=== PATIENT | female | born 1995 | race Caucasian/White ===

== ENCOUNTER → 2018-09-30 15:00 | Outpatient (CLI) | payer SELFPAY | DX: Z23 Encounter for immunization (principal) | CPT/HCPCS: 90471; 90686 ==

== ENCOUNTER → 2019-07-28 08:47 | Outpatient (CLI) | payer OTHER, SELFPAY ==
[2019-07-29 08:36] LABS: Strep Grp B PCR NEG for Grp B Strep
== END ==
DX: Z34.03 Encounter for supervision of normal first pregnancy, third trimester (principal)
CPT/HCPCS: 87653

== ENCOUNTER 2019-09-03 17:49 | Observation (INO) | payer OTHER, SELFPAY | END 2019-09-03 19:20 | disposition home or self-care (01) | LOC: LABOR 17:51 | CPT/HCPCS: 59025; G0378; G0379 ==

== ENCOUNTER 2019-09-04 06:46 | Inpatient (IN) | payer OTHER, SELFPAY ==
[2019-09-04] VITALS (7 sets, daily range): BP systolic 89–125; BP diastolic 47–87; PULSE 75–77; RESP 12–16; TEMP 37.2–38.2; O2SAT 99
--- NOTE | 2019-09-04 08:11 | P.HPOB_ITS ---
OB HPI Date/Time Date of admission: 09/04/19 Date Patient Seen: 09/04/19 Time Patient Seen: 08:11 History of Present Condition Chief complaint: : 1 Para: 0 Estimated Date of Delivery: 08/30/19 Estimated Gestational Age (weeks): 41 Narrative: Yvette Pollard is a 24 year old female one para 0 who presents for induction of labor at 41 weeks of . The patient was to have misoprostol cervical ripening but all beds were full. The patient returns this morning for evaluation of induction. The patient's antepartum course was unremarkable. She had a normal 20 week ultrasound. Her GBS is negative. Her glucose screen was normal. Indications Indication for induction OB: post dates History of Present care: good care, initiated at week # (6), number of visits (14) and pounds weight gain (19) Dating criteria: LMP confirmed by 1st trimester US Ultrasounds: normal 1st trimester US, normal mid trimester US and other (38 weeks estimated weight of seven 1-1/2 lb) Obstetrical complications: none and gestational diabetes Medical complications: none Preadmission Labs Blood type: A (+) positive -: Antibody screen: negative, Cystic fibrosis screen: unknown, GBS status: negative, HBsAG: negative, HIV: negative, HSV 1: negative, HSV 2: negative and RPR/VDLR: negative -: Chlamydia screen: detected (Negative) and Gonorrhea screen: detected (Negative) -: Rubella: immune and Varicella: immune HCT: 38 HCAB: negative PAP: Normal Sequential screen: Negative Quad screen: Normal 3 hr GTT: 1 hr (192), 2 hr (170) and 3 hr (66) Narrative: Blood sugars throughout lower normal Evaluation Evaluation Baseline heart rate: 140 Variability: Average (6-10) monitor accelerations: Present monitor decelerations: Absent Contraction Frequency (minutes): 0 Category of Tracing: I Cervical dilation (cm): 3 Cervical effacement (%): 80 station: -1 [facility] Family History (Updated 08/03/19 @ 21:13 by Loren Perez) Mother Hyperlipidemia Grandmother Thyroid cancer Grandfather Diabetes mellitus Mental health problem Grandmother Stroke Family History Mother Hyperlipidemia Grandmother Thyroid cancer Grandfather Diabetes mellitus Mental health problem Grandmother Stroke Review of Systems Review of Systems ROS Unobtainable: All systems reviewed & are unremarkable except as noted in HPI and below Exam Const General: cooperative and healthy appearing HENMT Head: normal to inspection Ears: hearing grossly normal bilaterally Nose: external nose normal Face and sinus: normal facial exam Mouth: oral mucosae normal, lip normal, tongue normal and moist mucous membranes Teeth and gingiva: dentition normal Throat: posterior oropharynx normal Eyes General: appearance normal, both eyes and all related structures Neck Neck: normal visual inspection and full ROM Chest Chest: normal inspection of the chest and normal palpation of entire chest wall Breast inspection: normal inspection of the breasts and normal inspection of the axillae Breast Palpation: normal palpation of the breasts and normal palpation of the axillae Resp Effort & Inspection: normal respiratory effort Auscultation: clear to auscultation bilaterally Cardio Palpation: normal PMI Rate: regular rate Rhythm: regular rhythm Heart Sounds: S1 normal and S2 normal GI Inspection: normal to inspection Palpation: soft and no hepatosplenomegaly Percussion: normal to percussion Auscultation: normal bowel sounds Manual OB Exam: dilated 3, effaced 75% and station -1 Uterus Location (Fundal Height): 38 Estimated Weight (lbs): 7 Back/Spine/Pelvis Thoracic/Lumbar Spine: thoracic and lumbar spine normal to inspection Skin General: no rashes or lesions noted Neuro General: alert, oriented x3, tone normal and moves all extremities Cognition: normal cognition Speech: speech normal Gait: normal gait Motor: muscle tone normal throughout Sensory Exam: no sensory deficits noted Extrem General: normal to inspection and normal exam except as noted Psych Appearance: grossly normal and well kempt Mental Status: mental status grossly normal Speech and Movement: speech and movement normal Assessment and Plan Assessment and Plan Assessment and Plan narrative: Post term intrauterine Plan is for induction of labor. Ca score is 10
[2019-09-04 08:50] LABS: Add Manual Diff / Slide Review NO; Basophils Absolute Auto 0 /uL (0-100); Basophils Percent Auto 0.1 % (0-2); Eosinophils Absolute Auto 100 /uL (0-450); Eosinophils Percent Auto 0.9 % (2-4); Hematocrit 41.6 % (36-46); Hemoglobin 13.9 g/dL (12.0-16.0); Lymphocytes Absolute Auto 2500 /uL (1100-4500); Lymphocytes Percent Auto 15.7 % (25-40); Mean Corpuscular HGB Conc 33.4 % (30-36); Mean Corpuscular Hemoglobin 25.4 PG (26-34); Mean Corpuscular Volume 76.1 fL (80-100); Monocytes Absolute Auto 1100 /uL (0-900); Monocytes Percent Auto 6.9 % (3-14); Neutrophils Absolute Auto 11900 /uL (1500-7000); Neutrophils Percent Auto 76.4 % (50-75); Platelet Count 263 X10^3/uL (150-400); Red Blood Cell Count 5.47 X10^6/uL (4.0-5.2); Red Cell Distribution Width 15.2 % (11.6-14.8); White Blood Cell Count 15.6 X10^3/uL (4.5-11.0)
[2019-09-04] MEDS: OXYTOCIN PREMIX 30 UNIT/500 ML PLAST..BAG IV (11:04)
[2019-09-04] MEDS: LACTATED RINGERS 1,000 ML 100 ML IV ×2 (11:10→21:04)
--- NOTE | 2019-09-04 17:25 | PM.OBPNLAB ---
Date/Time Date Patient Seen: 09/04/19 Time Patient Seen: 17:25 Pain Control Pain control: tolerating well Pelvic Exam Dilation (cm): 7 Effacement (%): 100 station: -1 Amniotic membrane status: Ruptured Contractions Contractions on admission: regular Monitor mode: Internal Pitocin rate (mU/min): 9 Contraction frequency (min): 2 Contraction duration (min): 60 Contraction pattern: Regular Contraction phase: Resting Contraction intensity: Strong/Firm Intrauterine tone measurement: 90 Status Heart Rate Baseline: 140 Monitor Accelerations: Present Monitor Decelerations: Variable Monitor Variability: Moderate Assessment and Plan Assessment: active labor and induction ongoing Plan: Comments: P t 7 cm at 1330 IUPC placed and pitocin increase regualr 90mm contractions. At 5 pm still 7 cm. More importantly no descent of head. Gopi presentation
[2019-09-04] MEDS: CEFOTETAN 2 GM/50 ML PIGGYBACK IV (17:53)
[2019-09-04] MEDS: ACETAMINOPHEN IV 1,000 MG/100 ML VIAL 400 MG IV (18:24)
--- NOTE | 2019-09-04 18:50 | P.OP_ITS ---
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 She was draped and prepared in the usual fashion. Transverse skin incision was made. Subcutaneous tissue was incised to the fascia.
--- NOTE | 2019-09-04 18:50 | SUR.OPER ---
Supine on Padded OR bed, head on pillow, safety belt at thigh, arms secured on padded arm boards at <90 degrees abduction. Bump under right buttock. Legs uncrossed with pillow under knees, gel pad to heels, tape over blanket to lower legs.
--- NOTE | 2019-09-04 18:53 | PM.GYNOP.1 ---
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 Transverse incision was made subcutaneous tissue was incised to the fascia. Fascia was incised with sharp knife transversely. The primary LS muscles were incised in the midline and this was white my blunt finger dissection. Perineum was picked up and incised. Shows white by blunt finger dissection. Bladder by facet in place. The perineum over the lower uterine segment was picked up and incised laterally in each direction. Bladder was taken down bluntly. Bladder blade was replaced. Transverse incision was made across the lower uterine segment a perforating incision was made centrally. There was meconium-stained amniotic fluid. Live born female infant was delivered without difficulty. The respiratory therapist and nurse were in attendance brown the normal in a good condition. Cord gases were obtained which were normal. Cord blood was obtained. Placenta was removed manually and all membranes massage from the endometrial cavity. The lateral edges incision were grasped with Allis Taos clamps. The incision was closed in imbricating fashion using two layer technique with 1. Chromic suture. The visceral peritoneum was closed with running two 0 chromic suture. Area was irrigated. Tubes and ovaries appeared to be normal. Parietal perineum was closed with running two 0 chromic suture. Area was irrigated. The fascia was reapproximated source 0 mattress one Vicryl suture. Fascia was then closed with two continuous 1. Vicryl sutures. Subcutaneous tissue was irrigated. Subcutaneous tissue was closed in two layers. 1st layer was closed interrupted three 0 Vicryl suture. 2nd layer was closed with running horizontal mattress three 0 Vicryl suture. Skin was further approximated Steri-Strips and an Aquacel dressing applied. Complications: none Post-operative Condition: stable Disposition: PACU Plan for aftercare: 2 care
[2019-09-04] MEDS: MEPERIDINE 50 MG/ML INJ 25 MG IV (18:55)
--- NOTE | 2019-09-04 18:58 | SUR.OPER ---
LIVE BABY GIRL BORN AT 1801. HEART RATE 130'S
[2019-09-04] MEDS: OXYCODONE/ACETAMINOPHEN 5/325 TABLET 2 TAB PO (21:10)
[2019-09-05] MEDS: KETOROLAC 30 MG/ML VIAL IV ×3 (01:39→16:57)
[2019-09-05] MEDS: LACTATED RINGERS 1,000 ML 100 ML IV (05:03)
[2019-09-05] MEDS: LANOLIN OINT 7 GM 1 APPLIC TOP (06:39)
[2019-09-05] MEDS: HYDROCODONE/ACET 5/325 TABLET 1 TAB PO ×4 (06:39→22:06)
[2019-09-05 07:05] LABS: Hematocrit 31.6 % (36-46); Hemoglobin 10.4 g/dL (12.0-16.0)
--- NOTE | 2019-09-05 07:35 | P.PNOB_ITS ---
Subjective - OB Subjective Patient comments: no complaints [place] baby status: doing well [place] feeding status: exclusively breast feeding Narrative: Patient is a 24-year-old now one para one status post section for CPD failure to progress. Patient is doing well and having no major problems. She continues on IVs. Her [place] is in place and draining clear urine. Her bleeding is minimal Date Patient Seen: 09/05/19 Time Patient Seen: 08:01 Exam Vital Signs (past 8 hours): Oxygen Delivery Method Room Air Narrative Exam Narrative: Fundus is U minus two Incision as an Aquacel dressing Lochia scant to moderate Objective Labs Result Diagrams: 09/05/19 06:34 Labs: Laboratory Results - last 24 hr 09/04/19 09/04/19 09/05/19 08:15 08:35 06:34 WBC 15.6 H RBC 5.47 H Hgb 13.9 10.4 L Hct 41.6 31.6 L MCV 76.1 L MCH 25.4 L MCHC 33.4 RDW 15.2 H Plt Count 263 Neut % (Auto) 76.4 H Lymph % (Auto) 15.7 L [place] % (Auto) 6.9 Eos % (Auto) 0.9 L Baso % (Auto) 0.1 Neut # (Auto) 18741 H Lymph # (Auto) 2500 Noble # (Auto) 1100 H Eos # (Auto) 100 Baso # (Auto) 0 Blood Type A Positive Antibody Screen Negative Assessment & Plan Plan day: 1 plan OB: routine postop care Comments: Patient doing well Time Spent With Patient Time: Total time spent is greater than 50% in coordination of care (as documented) at patient's floor/unit and/or counseling patient: Time with patient: less than 15 minutes
[2019-09-05] MEDS: DOCUSATE 250 MG CAPSULE PO (09:25)
[2019-09-05] MEDS: FERROUS GLUCONATE 324 MG TABLET PO (09:25)
[2019-09-05 16:58] VITALS: TEMP 36.9
[2019-09-05 18:39] VITALS: BP 120/78; PULSE 96; RESP 16; TEMP 36.9
[2019-09-05] MEDS: IBUPROFEN 600 MG TABLET PO (23:07)
[2019-09-06] MEDS: OXYCODONE/ACETAMINOPHEN 5/325 TABLET 2 TAB PO ×4 (02:16→15:19)
[2019-09-06] MEDS: IBUPROFEN 600 MG TABLET PO ×2 (05:23→11:13)
--- NOTE | 2019-09-06 08:44 | PM.OBDS.1 ---
Discharge Providers Provider Date of admission: 09/04/19 06:46 Discharge Date: 09/06/19 Consults: 09/04/19 18:39 Consult to Account Liaison Routine Comment: 09/04/19 18:57 Consult to Account Liaison Routine Comment: Discharge provider: Santiago Junior MD Summary Hospital Course Date Patient Seen: 09/06/19 Time Patient Seen: 08:45 Procedures: Pitocin induction of labor Primary low segment section current time Hospital Course: Patient was admitted for elective induction of labor because of post datism. Pitocin was begun and membranes were ruptured. Patient may progress to 7 cm and then over three there was no cervical dilatation nor descent of the head. Patient underwent a primary low segment section and was delivered of a 6 lb 10 oz live-born female with meconium-stained amniotic fluid. The baby is done well. the patient remained afebrile and was alimented and ambulated. She was discharged home for follow-up in one week for Aquacel dressing removed Peripartum Data Delivery Method: Section Procedures: Primary low segment section complications: none Status at Discharge Cognitive/behavioral status at discharge: oriented Functional status at discharge: independent ambulation Overall status at discharge: patient is progressing back to baseline Time Spent with Patient Time attestation: Total time spent providing and/or coordinating discharge services: Time spent: Less than 30 minutes Objective Labs Result Diagrams: 09/05/19 06:34 Exam Vital Signs (past 8 hours): Oxygen Delivery Method Room Air Narrative Exam Narrative: Fundus U minus four Incision with Aquacel dressing Lochia scant Discharge Plan Discharge Plan Patient Disposition: Home Discharge Med Rec/Prescriptions Prescriptions: New hydrocodone-acetaminophen 5-325 mg Tablet 1 tab PO Q4HR PRN (Reason: Pain, Moderate (4-6)) Qty: 10 RF: 0 ibuprofen 600 mg Tablet 600 mg PO Q6HR PRN (Reason: As Needed For Fever/Mild Pain) Qty: 14 RF: 0 docusate sodium 250 mg Capsule 250 mg PO DAILY Qty: 10 RF: 0 Gde-O-Xvoyhn Cream 1 applic topical PRN PRN (Reason: ) Qty: 1 RF: 0 ferrous gluconate 324 mg (38 mg iron) Tablet 324 mg PO DAILY Qty: 60 RF: 0 Prenatabs Rx 29 mg iron- 1 mg Tablet 1 tab PO DAILY Qty: 30 RF: 0 Follow up/Referrals: Santiago Junior MD [Physician] - 1 Week Provider Discharge Instructions Diet: Diet as Tolerated Activity: Up ad syeda May shower Skin/Wound/Dressing Care Report to your healthcare provider any signs of infection, such as:: chills, fever, increased pain, unusual drainage and unusual redness Dressing: Remove in office one week
[2019-09-06] MEDS: PRENATAL VIT,CALC/IRON/FOLIC 1 TABLET 1 TAB PO (09:30)
[2019-09-06] MEDS: DOCUSATE 250 MG CAPSULE PO (09:30)
[2019-09-06] MEDS: FERROUS GLUCONATE 324 MG TABLET PO (09:30)
== END 2019-09-06 16:55 | disposition home or self-care (01) | DRG 787 ==
PROC: 10D00Z1 Extraction of Products of Conception, Low, Open Approach (ICD-10-PCS; CPT 59514; principal; 2019-09-04 17:45)
DX: O48.0 Post-term pregnancy (principal); D62 Acute posthemorrhagic anemia; O24.420 Gestational diabetes mellitus in childbirth, diet controlled; O32.4XX0 Maternal care for high head at term, not applicable or unspecified; Z3A.41 41 weeks gestation of pregnancy; Z37.0 Single live birth; O61.0 Failed medical induction of labor; O77.0 Labor and delivery complicated by meconium in amniotic fluid
CPT/HCPCS: 01967; 01968; 36415; 59050; 59515; 76815; 85014; 85018; 85025; 86850; 86900; 86901; G0379; J0131; J1885; J2175; J2274; J2590

== ENCOUNTER 2021-11-24 11:39 | Emergency (ER) | payer OTHER, SELFPAY ==
[2021-11-24 12:10] VITALS: BP 116/75; PULSE 96; RESP 18; TEMP 36.4; O2SAT 99
--- NOTE | 2021-11-24 16:58 | PC.NURSE ---
called in lobby at 1659 with no answer.
--- NOTE | 2021-11-24 17:02 | PC.NURSE ---
patient was in XRAY when i called for her in the lobby.
== END 2021-11-24 18:11 | disposition left against medical advice (07) ==
PROVIDERS: Emergency Provider Emergency Medicine
DX: S61.211A Laceration without foreign body of left index finger without damage to nail, initial encounter (principal); X58.XXXA Exposure to other specified factors, initial encounter
CPT/HCPCS: 99281